=== PATIENT | female | born 1975 | race Two or more races ===

== ENCOUNTER 2024-01-06 13:23 | Emergency (ER) | payer BC ==
[~2024-01-06] VITALS: Ht 170.2 cm; Wt 109.8 kg
[2024-01-06] MEDS ORDERED: KETOROLAC TROMETHAMINE 60 MG VIAL IM ONE ×2 (14:15→15:06)
[2024-01-06] MEDS ORDERED: KETO10TA2 PO (15:28)
== END 2024-01-06 17:08 | disposition home or self-care (01) ==
LOC: ER 13:25
DX: S99.811A Other specified injuries of right ankle, initial encounter (principal); S82.899A Other fracture of unspecified lower leg, initial encounter for closed fracture; W19.XXXA Unspecified fall, initial encounter; Y93.89 Activity, other specified; Y92.89 Other specified places as the place of occurrence of the external cause; Y99.8 Other external cause status